=== PATIENT | male | born 1945 | race Caucasian/White ===

== ENCOUNTER → 2019-03-24 | Outpatient (CLI) | payer OTHER, MEDICARE ==
[~2019-03-24] MED LIST: ACETAMINOPHEN325 M1 PO; ASPIR 8181 MG PO; ASPIRIN EC81 M1 PO; CENTRUM COMPLE1 EACH PO; CENTRUM SILVER1 EAC4 PO; CRESTOR10 MG PO; ENOXAPARIN80 MG/0.1 SUBQ; FERREX 150 PLU1 EAC1 PO; FISH OIL 1,2001 EAC4 PO; FLAX SEED OIL1000 MG PO; FLEXERIL PO; IBUPROFEN 400400 M1 PO; LEVAQUIN 500 M500 M1 PO; LOPRESSOR25 PO; LOPRESSOR50 PO; NITROGLYCERIN0.4 MG SUBLING; PACERONE 200 M200 M1 PO; TYLENOL325 MG PO
== END ==
LOC: M.RAD 09:50
DX: R06.02 Shortness of breath (principal)